=== PATIENT | female | born 1975 | race Hispanic/Latino ===

== ENCOUNTER 2024-03-04 09:43 | Emergency (ER) | payer BC, OTHER ==
[~2024-03-04] VITALS: Ht 160 cm; Wt 78.7 kg
[2024-03-04] MEDS ORDERED: COZAAR25 MG PO (10:04)
[2024-03-04] MEDS ORDERED: KETOROLAC TROMETHAMINE 30 MG/ML VIAL IV ONE (10:15)
[2024-03-04] MEDS ORDERED: SODIUM CHLORIDE 0.9% 1,000 ML IV ONE (10:15)
[2024-03-04 10:35] LABS: BASOPHILS 0.2 % (0-2); EOSINOPHILS 0.6 % (0-6); HEMATOCRIT 39.1 % (35.0-50.0); HEMOGLOBIN 13.3 g/dL (12.0-18.0); LYMPHOCYTES 25.6 % (24-44); MCH 29.5 (27-36); MCHC 34.1 g/dl (30-36); MCV 86.6 fl (81-99); MONOCYTES 7.8 % (0-12); NEUTROPHILS 65.8 % (39-80); PLATELET COUNT 211 K/uL (140-440); RBC 4.51 M/ul (4.3-5.7); RDW 12.9 (10.5-15.0)
[2024-03-04 10:59] LABS: ALBUMIN 3.7 g/dL (3.4-5.0); ALBUMIN/GLOBULIN RATIO 0.95 (1.1-2.4); ALKALINE PHOSPHATASE 89 U/L (46-116); ALT (SGPT) 17 U/L (14-59); AST (SGOT) 14 U/L (15-37); BILIRUBIN, TOTAL 0.4 ng/dL (0.2-1.0); BUN/CREATININE RATIO 17.64 (6.0-28.6); CALCIUM 8.9 mg/dL (8.5-10.1); CARBON DIOXIDE 28 mmol/L (21-32); CHLORIDE 106 mmol/L (98-107); CREATININE, SERUM 0.68 mg/dL (0.55-1.02); GLOMERULAR FILTRATION RATE,EST 107 mL/min (>60); PROTEIN, TOTAL 7.6 g/dL (6.4-8.2); UREA NITROGEN 12 mg/dL (7-18)
[2024-03-04 11:44] LABS: INFLUENZA B NAA NEGATIVE (NEGATIVE); RESPIRATORY SYNCYTIAL VIR NAA NEGATIVE (NEGATIVE)
[2024-03-04 12:29] LABS: BILIRUBIN, URINE NEGATIVE (negative); BLOOD/HGB, URINE LARGE (Negative); KETONE, URINE NEGATIVE (Negative); LEUK ESTERASE, URINE NEGATIVE (negative); NITRITE, URINE NEGATIVE (negative)
[2024-03-04 12:36] LABS: BACTERIA, URINE RARE /hpf (negative); CASTS, URINE NONE SEEN \\lpf; COLLECTION TYPE, URINE CLEAN CATCH; CRYSTALS, URINE NONE SEEN (0-1+); EPITHELIAL CELLS, URINE SQUAMOUS 3+ /lpf (0-1+); REFLEX CULTURE, URINE No (No)
[2024-03-04 13:00] LABS: AMPHETAMINES, URINE NEGATIVE (NEGATIVE); BARBITURATES, URINE NEGATIVE (NEGATIVE); BENZODIAZEPINE, URINE NEGATIVE (NEGATIVE); BUPRENORPHINE, URINE NEGATIVE (NEGATIVE); CANNABINOID, URINE NEGATIVE (NEGATIVE); COCAINE, URINE NEGATIVE (NEGATIVE); ECSTASY, URINE NEGATIVE (NEGATIVE); FENTANYL, URINE NEGATIVE (NEGATIVE); METHADONE, URINE NEGATIVE (NEGATIVE); OPIATES, URINE NEGATIVE (NEGATIVE); OXYCODONE, URINE NEGATIVE (NEGATIVE); PHENCYCLIDINE, URINE NEGATIVE (NEGATIVE)
[2024-03-04 13:51] VITALS: BP 128/78
--- NOTE | 2024-03-05 19:22 | EKG ---
[facility] [address] [place], [place] [address] Signed Normal sinus rhythm Normal ECG No previous ECGs available Confirmed by Fernando Glover MD ([id number]) on 03/05/2024 7:22:07 PM Electronically Signed By: FERNANDO GLOVER MD 03/05/241921 PATIENT NAME: MALIKA LAUREN Electrocardiogram DATE OF : 75 PHYSICIAN: FERNANDO GLOVER MD REPORT #: [id number] REPORT IS CONFIDENTIAL AND NOT TO BE RELEASED WITHOUT AUTHORIZATION
== END 2024-03-04 13:50 | disposition home or self-care (01) ==
LOC: ED 09:43
PROVIDERS: Emergency Medicine
DX: I10 Essential (primary) hypertension (principal); R53.81 Other malaise; R73.03 Prediabetes; Z79.899 Other long term (current) drug therapy
CPT/HCPCS: 36415; 71045; 80053; 80307; 81001; 83690; 83880; 84484; 84703; 85025; 85379; 87502; 93005; 93010; 96374; 99285-25; J1885; J7030; U0002